=== PATIENT | male | born 1995 | race American Indian/Alaskan Native ===

== ENCOUNTER 2017-10-30 07:47 | Emergency (ER) | payer BC, OTHER ==
[2017-10-30] MEDS ORDERED: TYLENOL PO ONE ×2 (13:13→13:14)
[2017-10-30] MEDS ORDERED: TYLENOL ONE (13:16)
--- NOTE | 2017-10-30 13:19 | Emergency Department Report ---
Minor Respiratory - HPI Chief Complaint: Upper Respiratory Infection Stated Complaint: FLU LIKE SYMPTOMS Time Seen by Provider: 10/30/17 11:33 Duration: 3 Days Pain Location: Throat Severity: mild Minor Respiratory: Yes Rhinorrhea, Yes Sore Throat, Yes Able to Tolerate Fluids , Yes Cough, Yes Sick Contacts (roommates in college had flu like symptoms), Yes Fever, No Ear Pain, No Hemoptysis, No Chest Pain, No Shortness of Breath Other History: 22 y.o. male presents with unproductive cough, fever, chills, decreased appetitie, and sleep disturbance for 3 days. His roommates in college had flu like symptoms. He is taking nyquil, theraflu, mucinex. He had diarrhea yesterday but has passed. Mom states she has increased fluids and giving soup with minimal improvement. Denies SOB, chest pain, wheezing, andabdominal pain. ED Review of Systems ROS: Stated complaint: FLU LIKE SYMPTOMS Other details as noted in HPI Constitutional: see HPI, chills, fever, malaise. denies: diaphoresis, weakness ENT: congestion. denies: ear pain, throat pain Respiratory: see HPI, cough. denies: orthopnea, shortness of breath, SOB with exertion, SOB at rest, stridor, wheezing Cardiovascular: as per HPI. denies: chest pain, palpitations, dyspnea on exertion, orthopnea, edema, syncope, paroxysmal nocturnal dyspnea Gastrointestinal: denies: abdominal pain, nausea, diarrhea Neurological: denies: headache, weakness, paresthesias ED Past Medical Hx - Past Medical History Previous Medical History?: No Hx Arthritis: (tete) - Surgical History Past Surgical History?: No Hx Appendectomy: (tete) - Social History Smoking Status: Current Every Day Smoker Substance Use Type: Alcohol, Marijuana - Medications Home Medications: Home Medications Medication Instructions Recorded Confirmed Last Taken Type Brompheniramine/Pseudoephed/Dm 118 ml PO Q4HR PRN #100 syrup 10/30/17 Unknown Rx [Bromfed Dm Cough Syrup] Fluticasone [Flonase] 1 spray NS QDAY #1 bottle 10/30/17 Unknown Rx Oseltamivir [Tamiflu] 75 mg PO BID 5 Days #10 cap 10/30/17 Unknown Rx Minor Respiratory Exam - Exam General: Vital signs noted. No distress. Alert and acting appropriately. HEENT: Yes Pharyngeal Erythema, Yes Moist Mucous Membranes, Yes Rhinorrhea, No Pharyngeal Exudates, No Conjuctival Injection, No Frontal Tenderness, No Maxillary Tenderness Ear: Neither TM Bulge, Neither TM Erythema, Neither EAC Pain, Neither EAC Discharge Neck: Yes Supple, No Adenopathy Lungs: Yes Good Air Exchange, Yes Wheezes, Yes Cough, No Ronchi, No Stridor, No Labored Respirations, No Retractions, No Use of Accessory Muscles, No Other Abnormal Lung Sounds Heart: Yes Regular, No Murmur Abdomen: Yes Normal Bowel Sounds, No Tenderness, No Peritoneal Signs Skin: No Rash, No Edema Neurologic: Alert and oriented, no deficits. Musculoskeletal: Unremarkable. ED Course Vital Signs 10/30/17 08:00 Temperature 99.5 F Pulse Rate 84 Respiratory 16 Rate Blood Pressure 119/84 O2 Sat by Pulse 99 Oximetry ED Medical Decision Making - Medical Decision Making 22 y.o. male presents with flu like symptoms for 3 days. Roommates in college had flu like symptoms. Taking nyquil, theraflu, mucinex. Given tylenol for low grade temp once. Viral syndrome: home with tamiflu, flonase, bromfed, continue OTC meds for symptoms. Discussed S/S of when to return to ER and nonpharm measures. Follow-up with PCP. Critical care attestation.: If time is entered above; I have spent that time in minutes in the direct care of this critically ill patient, excluding procedure time. ED Disposition Clinical Impression: Viral syndrome URI (upper respiratory infection) Qualifiers: URI type: acute nasopharyngitis (common cold) Qualified Code(s): J00 - Acute nasopharyngitis [common cold] Disposition: - TO HOME OR SELFCARE Is pt being admited?: No Does the pt Need Aspirin: No Condition: Stable Instructions: Upper Respiratory Infection (ED), Cold Symptoms (ED), Viral Syndrome (ED) Additional Instructions: Wash hands frequently. The cough can last for 2-3 weeks. Use tylenol and ibuprofen should be taken with regular fluid intake. Follow up with primary care provider. Seek medical attention if fever, headache, wheezing, or chest symptoms worsen. If drowsy or confused in the short term or if cough last longer than 4 weeks. Prescriptions: Brompheniramine/Pseudoephed/Dm [Bromfed Dm Cough Syrup] 118 ml PO Q4HR PRN #100 syrup PRN Reason: Cough Fluticasone [Flonase] 1 spray NS QDAY #1 bottle Oseltamivir [Tamiflu] 75 mg PO BID 5 Days #10 cap Referrals: LG HERNANDEZ MD [Primary Care Provider] - 3-5 Days [facility] [Outside] - 3-5 Days [facility] [Outside] - 3-5 Days Forms: Work/School Release Form(ED) Time of Disposition: 13:29 Print Language: LUXEMBOURGER
[2017-10-30 13:42] VITALS: BP 121/77
== END 2017-10-30 13:43 | disposition home or self-care (01) ==
LOC: ED 07:47
DX: B34.9 Viral infection, unspecified (principal); J00 Acute nasopharyngitis [common cold]; F17.200 Nicotine dependence, unspecified, uncomplicated; F12.10 Cannabis abuse, uncomplicated
CPT/HCPCS: 87116; 87400; 87430; 99283